=== PATIENT | male | born 1985 | race African-American/Black ===

== ENCOUNTER 2021-07-25 06:21 | Day surgery (SDC) | payer OTHER ==
[~2021-07-25] VITALS: Ht 177.8 cm; Wt 94.0 kg
[~2021-07-25 06:21] MED LIST: ACETAMINOPHEN 500 MG TABLET PO PRN; HYDROmorphone 2 MG/ML INJ. IVP PRN; IV RINGERS,LACTATED 1000ML 1,000 ML IV SCH; MORPHINE SULFATE 2 MG/ML INJ. IVP PRN; PROCHLORPERAZINE 10 MG/2 ML VIAL. IVP PRN; fentaNYL PF VIAL 100 MCG/2 ML VIAL IVP PRN
[2021-07-25 06:34] VITALS: BP 150/78
[2021-07-25] MEDS ORDERED: POLY17PO29 PO (06:39)
[2021-07-25] MEDS ORDERED: DOCU100C28 PO (06:39)
[2021-07-25] MEDS ORDERED: MAGNESIUM SULFATE 5 GM/10 ML VIAL. ONE ×2 (07:30→07:33)
[2021-07-25] MEDS ORDERED: SUGAMMADEX SODIUM 200 MG/2 ML VIAL. IVP ONE (07:30)
[2021-07-25] MEDS ORDERED: ONDANSETRON PF 4 MG/2 ML VIAL. ONE (07:33)
[2021-07-25] MEDS ORDERED: PROPOFOL 10 MG/ML (20ML) VIAL. IV ONE (07:33)
[2021-07-25] MEDS ORDERED: DEXAMETHASONE SOD PHOS 4 MG/ML VIAL ONE (07:33)
[2021-07-25] MEDS ORDERED: LIDOCAINE 2% PF 5 ML VIAL. ONE ×3 (07:33)
[2021-07-25] MEDS ORDERED: MIDAZOLAM HCL/PF 2 MG/2 ML VIAL. ONE (07:34)
[2021-07-25] MEDS ORDERED: KETOROLAC 30 MG/ML VIAL. ONE (07:34)
[2021-07-25] MEDS ORDERED: ROCURONIUM 100 MG/10 ML VIAL. ONE (07:34)
[2021-07-25] MEDS ORDERED: KETAMINE HCL IN NACL, ISO-OSM 50 MG/5 ML SYRINGE ONE (07:34)
[2021-07-25] MEDS ORDERED: BUPIVACAINE-EPI 0.25% 30 ML VIAL KIT. ONE (07:39)
[2021-07-25] MEDS ORDERED: MINERAL OIL for SURGERY 10 ML VIAL. MC ONE (07:40)
[2021-07-25] MEDS ORDERED: IV NORMAL SALINE 50ML 50 ML ONE (07:41)
--- NOTE | 2021-07-25 07:50 | PDOC1 ---
History and Physical Date of Admission Date of Admission DATE: 07/25/21 TIME: 07:47 Identification/Chief Complaint Chief Complaint Left groin pain Source Source: Patient History of Present Illness History of Present Illness 35-year-old male with complaints of left groin pain and a bulge denies any nausea vomiting fevers or chills Past Medical History Cardiovascular: No pertinent hx Pulmonary: No pertinent hx GI: No pertinent hx Heme/Onc: No pertinent hx Hepatobiliary: No pertinent hx Psych: No pertinent hx Rheumatologic: No pertinent hx Infectious disease: No pertinent hx ENT: No pertinent hx Renal/: No pertinent hx Endocrine: No pertinent hx Dermatology: No pertinent hx Past Surgical History Past Surgical History: No pertinent history Family History Family History: No Significant Social History Smoke: No ALCOHOL: none Drugs: None Current Medications Current Medications Current Medications Fentanyl Citrate (Fentanyl 2ml Vial) 25 mcg PRN Q5MIN PRN IVP MILD PAIN 1-3; Start 07/25/21 at 06:00; Stop 07/25/21 at 20:00 Fentanyl Citrate (Fentanyl 2ml Vial) 50 mcg PRN Q5MIN PRN IVP MODERATE PAIN 4- 6; Start 07/25/21 at 06:00; Stop 07/25/21 at 20:00 Morphine Sulfate (Morphine Sulfate) 1 mg PRN Q10MIN PRN IVP SEVERE PAIN 7-10; Start 07/25/21 at 06:00; Stop 07/25/21 at 20:00 Ringer's Solution 1,000 ml @ 30 mls/hr Q24H IV Last administered on 07/25/21at 06:40; Start 07/25/21 at 06:00; Stop 07/25/21 at 17:59 Hydromorphone HCl (Dilaudid) 0.5 mg PRN Q10MIN PRN IVP SEVERE PAIN 7-10, 2nd CHOICE; Start 07/25/21 at 06:00; Stop 07/25/21 at 20:00 Prochlorperazine Edisylate (Compazine) 5 mg PACU PRN PRN IVP NAUSEA, MRX1; Start 07/25/21 at 06:00; Stop 07/25/21 at 20:00 Acetaminophen (Tylenol) 1,000 mg 1X PREOP PRN PO PRIOR TO PROCEDURE Last administered on 07/25/21at 06:40; Start 07/25/21 at 06:00 Cefazolin Sodium/ Dextrose 50 ml @ 100 mls/hr 1X PREOP PRN IV PRIOR TO PROCEDURE; Start 07/25/21 at 06:00; Stop 07/25/21 at 18:00 Sugammadex Sodium (Bridion) 200 mg 1X ONCE IVP ; Start 07/25/21 at 07:30; Stop 07/25/21 at 07:31; Status DC Magnesium Sulfate (Magnesium Sulfate) 5 gm STK-MED ONCE .ROUTE ; Start 07/25/21 at 07:30; Stop 07/25/21 at 07:30; Status DC Lidocaine HCl (Lidocaine Pf 2% Vial) 5 ml STK-MED ONCE .ROUTE ; Start 07/25/21 at 07:33; Stop 07/25/21 at 07:33; Status DC Propofol (Diprivan) 200 mg STK-MED ONCE IV ; Start 07/25/21 at 07:33; Stop 07/25/21 at 07:33; Status DC Magnesium Sulfate (Magnesium Sulfate) 5 gm STK-MED ONCE .ROUTE ; Start 07/25/21 at 07:33; Stop 07/25/21 at 07:33; Status DC Lidocaine HCl (Lidocaine Pf 2% Vial) 5 ml STK-MED ONCE .ROUTE ; Start 07/25/21 at 07:33; Stop 07/25/21 at 07:33; Status DC Lidocaine HCl (Lidocaine Pf 2% Vial) 5 ml STK-MED ONCE .ROUTE ; Start 07/25/21 at 07:33; Stop 07/25/21 at 07:33; Status DC Dexamethasone Sodium Phosphate (Decadron) 4 mg STK-MED ONCE .ROUTE ; Start 07/25/21 at 07:33; Stop 07/25/21 at 07:33; Status DC Ondansetron HCl (Zofran) 4 mg STK-MED ONCE .ROUTE ; Start 07/25/21 at 07:33; Stop 07/25/21 at 07:33; Status DC Rocuronium [place] (Zemuron) 100 mg STK-MED ONCE .ROUTE ; Start 07/25/21 at 07:34; Stop 07/25/21 at 07:34; Status DC Ketamine HCl (Ketamine) 50 mg STK-MED ONCE .ROUTE ; Start 07/25/21 at 07:34; Stop 07/25/21 at 07:34; Status DC Midazolam HCl (Versed) 2 mg STK-MED ONCE .ROUTE ; Start 07/25/21 at 07:34; Stop 07/25/21 at 07:34; Status DC Ketorolac Tromethamine (Toradol 30mg Vial) 30 mg STK-MED ONCE .ROUTE ; Start 07/25/21 at 07:34; Stop 07/25/21 at 07:34; Status DC Bupivacaine HCl/ Epinephrine Bitart (Sensorcain-Epi 0.25% Kit) 30 ml STK-MED ONCE .ROUTE ; Start 07/25/21 at 07:39; Stop 07/25/21 at 07:40; Status DC Mineral Oil (Muri-Lube) 10 ml STK-MED ONCE MC ; Start 07/25/21 at 07:40; Stop 07/25/21 at 07:40; Status DC Sodium Chloride 50 ml @ As Directed STK-MED ONCE .ROUTE ; Start 07/25/21 at 07:41; Stop 07/25/21 at 07:41; Status DC Active Scripts Active Reported Miralax (Polyethylene Glycol 3350) 17 Gm Powd.pack 1 Packet PO DAILY 2 Days dissolve in water Docusate Sodium 100 Mg Capsule 1 Cap PO BID 7 Days Allergies Allergies: Coded Allergies: No Known Drug Allergies (Unverified , 07/25/21) ROS General: No: Chills, Night Sweats, Fatigue, Malaise, Appetite, Other PSYCHOLOGICAL ROS: No: Anxiety, Behavioral Disorder, Concentration difficultie, Decreased libido, Depression, Disorientation, Hallucinations, Hostility, Irr itablity, Memory difficulties, Mood Swings, Obsessive thoughts, Physical abuse, Sexual abuse, Sleep disturbances, Suicidal ideation, Other Eyes: Yes Dry eyes HEENT: No: Heacaches, Visual Changes, Hearing change, Nasal congestion, Nasal discharge, Oral lesions, Sinus pain, Sore Throat, Epistaxis, Sneezing, Snoring, Tinnitus, Vertigo, Vocal changes, Other ALLERGY AND IMMUNOLOGY: No: Hives, Insect Bite Sensitivity, Itchy/Watery Eyes, Nasal Congestion, Post Nasal Drip, Seasonal Allergies, Other Hematological and Lymphatic: No: Bleeding Problems, Blood Clots, Blood Transfusions, Brusing, Night Sweats, Pallor, Swollen Lymph Nodes, Other Breast: No New/Changing Breast Lumps, No Nipple changes, No Nipple discharge, No Other Respiratory: No: Cough, Hemoptysis, Orthopnea, Pleuritic Pain, Shortness of breath, SOB with excertion, Sputum Changes, Stridor, Tachypnea, Wheezing, Other Cardiovascular: No Chest Pain, No Palpitations, No Orthopnea, No Paroxysmal Noc. Dyspnea, No Edema, No Lt Headedness, No Other Gastrointestinal: No Nausea, No Vomiting, No Abdominal Pain, No Diarrhea, No Constipation, No Melena, No Hematochezia, No Other Genitourinary: YES Other (Left groin pain) Musculoskeletal: No Gait Disturbance, No Joint Pain, No Joint Stiffness, No Joint Swelling, No Muscle Pain, No Muscular Weakness, No Pain In:, No Swelling In:, No Other Neurological: No Behavorial Changes, No Bowel/Bladder ControlChng, No Confusion, No Dizziness, No Gait Disturbance, No Headaches, No Impaired Coord/balance, No Memory Loss, No Numbness/Tingling, No Seizures, No Speech Problems, No Tremors, No Visual Changes, No Weakness, No Other Skin: No Dry Skin, No Eczema, No Hair Changes, No Lumps, No Mole Changes, No Mottling, No Nail Changes, No Pruritus, No Rash, No Skin Lesion Changes, No Other, No Acne Physical Exam General: Alert, Oriented X3, Cooperative, No acute distress HEENT: Atraumatic, PERRLA, EOMI Lungs: Clear to auscultation, Normal air movement Heart: RRR, no murmurs Abdomen: Normal bowel sounds, Soft, No tenderness Male Genitals Exam: other (Left inguinal hernia) Rectal Exam: not examined Extremities: No edema Skin: No significant lesion Neuro: Normal speech Psych/Mental Status: Mental status NL Vitals Vitals Vital Signs Date Time Temp Pulse Resp B/P (MAP) Pulse Ox O2 Delivery O2 Flow Rate FiO2 07/25/21 06:37 98.2 87 20 150/78 96 Room Air 98.2 VTE Prophylaxis Ordered VTE Prophylaxis Devices: Yes VTE Pharmacological Prophylaxi: Contraindicated Assessment/Plan Assessment/Plan Left inguinal hernia plan robotic assisted laparoscopic left inguinal hernia repair with mesh Justifications for Admission Other Justification FRANKLYN BURDEN MD Jul 25, 2021 07:50
[2021-07-25] MEDS ORDERED: PHENYLEPHRINE 10 MG/ML VIAL. ONE (08:31)
[2021-07-25] MEDS ORDERED: WATER FOR INJECTION,STERILE 10 ML IJ ONE (08:31)
[2021-07-25] MEDS ORDERED: ESMOLOL 100 MG/10 ML VIAL. IVP ONE (08:32)
[2021-07-25] MEDS ORDERED: GLYCOPYRROLATE 1 MG/5 ML VIAL. ONE (08:44)
--- NOTE | 2021-07-25 09:04 | PDOC4 ---
Operative Note Operative Note Date: July 252021 at 9:02 AM Preoperative diagnosis: Left inguinal hernia Postoperative diagnosis: Same Procedure: Robotic assisted laparoscopic left inguinal hernia repair with mesh Surgeon: Mata Specimen: None Dictation: Patient is a 35-year-old male complaining of a painful left groin bulge consistent with left inguinal hernia. Procedure of robotic assisted laparoscopic left inguinal hernia repair with mesh was explained to the patient detail was benefits were also discussed including bleeding infection injury to intra-abdominal contents possible necessitating further open operations alternatives to this procedure also discussed with patient he seemed to understand the above verbal written consent to have procedure performed. Patient was taken to the operating room placed in the supine position general anesthesia was initiated once patient was sleeping intubated is placed in lithotomy positioning and his abdomen was prepped and draped usual sterile fashion using ChloraPrep. Area just above his umbilicus inject quarter percent Marcaine with epinephrine incision was made with a blade scalpel and a varies needle was placed within the abdomen creating pneumoperitoneum once this complete 8 mm ventral port was placed in the da Alaina camera is placed within the abdomen which was inspected no other ab maladies were noted. 8 mm ventral port is placed in left midabdomen and an 8 mm da Alaina ports placed in the right midabdomen all under direct visualization. The da [place]a robot is brought and docked all port sites surgeon went to the robotic console using a grasper and En do Rajwinder scissors the peritoneum on the left side was incised and a flap propagated inferiorly with blunt and sharp dissection reducing the hernia sac and contents. Large 3D max Bard mesh for the left side was placed and the peritoneum was closed over the mesh with a running 2 OV lock absorbable suture. Sutures removed from the abdomen and the da Alaina was undocked from all port sites all ports were removed the pneumoperitoneum was reduced all port sites were closed for subcuticular Monocryl Mastisol Steri-Strips and island dressings were applied. Patient was awakened extubated in the operating room taken to recovery in stable condition all sponge instrument needle counts listed as correct estimated blood loss 10 mL FRANKLYN BURDEN MD Jul 25, 2021 09:04
[2021-07-25] MEDS ORDERED: OXYC-325 PO (09:06)
--- NOTE | 2021-07-25 09:07 | DISCH ---
DISCHARGE INSTRUCTIONS Condition on Discharge Condition on Discharge: Stable Activity After Discharge Activity Instructions for Disc: Avoid exertion Other activity instructions: No lifting more than 20 pounds for 2-week Diet after Discharge Diet after Discharge: Regular Wound Incision Care Other wound/incision instructi: May shower in 24-hour Contacting the [facility] after DC Call your doctor for: If your condition worsens Follow-Up Follow up with: Dr. uBrden in 2 weeks FRANKLYN BURDEN MD Jul 25, 2021 09:07
[2021-07-25] MEDS ORDERED: fentaNYL PF VIAL 100 MCG/2 ML VIAL ONE ×2 (09:14→09:40)
[2021-07-25] MEDS ORDERED: oxyCODONE/APAP 5/325 1 TAB TABLET ONE (09:40)
[2021-07-25] MEDS: fentaNYL PF VIAL 100 MCG/2 ML VIAL IVP PRN ×2 (09:43→10:01)
[2021-07-25] MEDS ORDERED: oxyCODONE/APAP 5/325 1 TAB TABLET PO ONE (09:45)
[2021-07-25 10:30] VITALS: BP 135/56
== END 2021-07-25 11:09 | disposition home or self-care (01) ==
LOC: SURG 06:21 → EEVIPCON 08:30 → SURG 11:09
PROVIDERS: ATTEND Surgery
DX: K40.90 Unilateral inguinal hernia, without obstruction or gangrene, not specified as recurrent (principal); Z79.899 Other long term (current) drug therapy; Z98.890 Other specified postprocedural states
CPT/HCPCS: 49650; A4213; A4364; A4930; A6219; A6257; C1781; J0690; J1100; J1885; J2250; J2370; J2405; J2704; J3010; J3475; J3490; S2900; A4223; A4657